=== PATIENT | female | born 1985 | race Caucasian/White ===

== ENCOUNTER → 2017-02-19 | Outpatient (CLI) | payer OTHER | LOC: KOH-I 10:35 | DX: M54.5 Low back pain (principal); M48.06 Spinal stenosis, lumbar region | CPT/HCPCS: 72110 ==

== ENCOUNTER → 2017-04-03 | Outpatient (CLI) | payer OTHER | LOC: EMI 08:03 | DX: M54.5 Low back pain (principal); M54.42 Lumbago with sciatica, left side ==

== ENCOUNTER → 2017-04-23 | Outpatient (CLI) | payer OTHER | LOC: KOH-I 04-11 10:45 | DX: M54.5 Low back pain (principal); M54.42 Lumbago with sciatica, left side; M51.36 Other intervertebral disc degeneration, lumbar region | CPT/HCPCS: 72148 ==

== ENCOUNTER → 2022-06-22 | Outpatient (CLI) | payer OTHER ==
[~2022-06-22] MED LIST: AMITRIPTYLINE H50 MG PO; BENTYL 20MG TAB20 MG PO; BUSPAR 10MG10 MG PO; FENOFIBRATE145 MG PO; FLAGYL500 MG PO; GLUCOPHAGE XR500 MG PO; KEFLEX CAP 500500 MG PO; LODINE CAP 300300 MG PO; MICROZIDE12.5 MG PO; PROTONIX40 MG PO; VITAMIN D250000 UNIT PO; ZOFRAN ODT 4 MG4 MG SL; ZYRTEC10 MG PO
== END ==
LOC: RT 09:56
DX: R00.0 Tachycardia, unspecified (principal)
CPT/HCPCS: 93005